=== PATIENT | female | born 1955 | race Hispanic/Latino ===

== ENCOUNTER 2020-11-21 10:10 | Day surgery (SDC) | payer OTHER ==
[2020-11-21] MEDS ORDERED: SODIUM CHLORIDE 0.9% 1000 ML 1,000 ML IV SCH (11:30)
--- NOTE | 2020-11-21 12:06 | Anesthesia Consultation ---
Anesthesia Consult and Med Hx Date of service: 11/21/20 - Airway Anesthetic Teeth Evaluation: Good ROM Head & Neck: Adequate Mental/Hyoid Distance: Adequate Mallampati Class: Class II Intubation Access Assessment: Probably Good - Pre-Operative Health Status ASA Pre-Surgery Classification: ASA2 Proposed Anesthetic Plan: MAC - Pulmonary Hx Smoking: No Hx Respiratory Symptoms: No - Cardiovascular System Hx Hypertension: Yes Hx Heart Attack/AMI: No Hx Percutaneous Transluminal Coronary Angioplasty (PTCA): No - Central Nervous System CVA: No - Endocrine Hx Renal Disease: No Hx Liver Disease: No Hx Insulin Dependent Diabetes: No Hx Non-Insulin Dependent Diabetes: No Hx Hypothyroidism: Yes - Other Systems Hx Obesity: No - Additional Comments Anesthesia Medical History Comments: No hx anesthetic complications.
--- NOTE | 2020-11-21 12:07 | Anesthesia Day of Surgery ---
Anesthesia Day of Surgery - Day of Surgery Patient Examined: Yes Patient H&P Reviewed: Yes Patient is NPO: Yes
[2020-11-21] MEDS ORDERED: MIDAZOLAM 2 MG/2 ML INJ ONE (12:10)
[2020-11-21] MEDS ORDERED: propofoL 200 MG/20 ML VIAL IV ONE ×3 (13:13→13:45)
[2020-11-21] MEDS ORDERED: LIDOCAINE MPF (2%) 20 MG/1 ML VIAL 5 ML ONE (13:13)
--- NOTE | 2020-11-21 14:04 | Procedure Note ---
Date of procedure: 11/21/20 Pre-op diagnosis: 1) Hematochezia 2) H/o diverticular stricture Post-op diagnosis: other (1) Mild universal diverticulosis 2) Benign appearing polyp of the proximal ascending colon) Procedure: Colonoscopy to cecum with cold biopsy X 3 of ascending colon polyp Description of procedure: Pt was placed left side down on the GI lab stretcher. MAC anesthesia was administered. Colonoscope was inserted into the pt's rectum and was advanced retrograde while directly visualizing the colonic lumen. The prep was adequate but suboptimal. Once the cecum was identified, the scope was slowly withdrawn with careful circumferential visualization of the colonic mucosa. A benign appearing polyp was noted in the proximal ascending colon adjacent to the os of a diverticulum. This was photodocumented and cold biopsied X 3 with minimal bleeding from the biopsy sites. It is possible that the changes about the diverticular os could also be secondary to a minimal, localized diverticulitis. Mild universal diverticulosis was also noted. There was no evidence of a diverticular stricture. There was no obvious source of the pt's hematochezia identified. Retroflexed view of the distal rectum revealed no additional pathologic findings. Insufflated air was aspirated from the rectum. Pt tolerated the procedure well. Pt was taken to PACU in stable condition. Anesthesia: MAC Surgeon: SHEILA GUTIERREZ Estimated blood loss: minimal Pathology: list (Biopsies X 3 of proximal ascending colon polyp) Specimen disposition: to lab Condition: stable Disposition: PACU
[2020-11-21] MEDS ORDERED: SIMETHICONE 80 MG CHEW TAB PO PRN (14:30)
[2020-11-21] MEDS ORDERED: MEPERIDINE 25 MG/1 ML INJ IV PRN (14:30)
[2020-11-21 15:42] VITALS: BP 147/74
--- NOTE | 2020-11-21 15:53 | Post Anesthesia Evaluation ---
- Post Anesthesia Evaluation Patient Participated: Yes Airway Patent: Yes Stable Respiratory Function: Yes Nausea/Vomiting: No Temp > 96.8F: Yes Pain Manageable: Yes Adequeate Hydration: Yes Anesthesia Complications: No
[2020-11-22] MEDS ORDERED: MIDAZOLAM 2 MG/2 ML INJ IV NR (06:00)
== END 2020-11-21 14:55 | disposition home or self-care (01) ==
LOC: GIO 10:10
PROVIDERS: ATTEND Surgery
DX: K92.1 Melena (principal); K57.30 Diverticulosis of large intestine without perforation or abscess without bleeding; K63.5 Polyp of colon; K63.89 Other specified diseases of intestine; I25.10 Atherosclerotic heart disease of native coronary artery without angina pectoris; I10 Essential (primary) hypertension; E03.9 Hypothyroidism, unspecified; Z88.8 Allergy status to other drugs, medicaments and biological substances; Z91.041 Radiographic dye allergy status; Z88.6 Allergy status to analgesic agent; Z79.899 Other long term (current) drug therapy; Z98.890 Other specified postprocedural states
CPT/HCPCS: 45380; 88305; J2175; J2250; J2704; J7030